=== PATIENT | female | born 1960 | race Hispanic/Latino ===

== ENCOUNTER 2022-03-04 10:48 | Emergency (ER) | payer SELFPAY ==
[2022-03-04] MEDS ORDERED: NA CHLORIDE 0.9% 1,000 ML ONE (11:25)
[2022-03-04] MEDS ORDERED: ONDANSETRON 4 MG/2 ML VIAL ONE ×2 (11:25→13:16)
[2022-03-04 11:26] LABS: Absolute Lymphocytes (CBC) 0.6 K/uL (0.7-4.9); Hematocrit 35.7 % (36.0-45.0); Lymphocytes % 7.8 % (15.3-44.8); MCV 87.4 fL (80-100); MPV 9.3 fL (7.6-11.3); RBC Red Blood Cell Count 4.08 M/uL (3.86-4.86)
[2022-03-04 11:32] LABS: Protime INR 1.34
[2022-03-04 11:38] LABS: SARS-CoV-2 Antigen Rapid Res Negative (Negative)
--- NOTE | 2022-03-04 11:53 | RAD REPORT ---
EXAM DESCRIPTION: RAD - Chest Single View - 03/04/2022 11:48 am CLINICAL HISTORY: COUGH COMPARISON: No comparisons FINDINGS: Lines: None. Lungs: No evidence of edema or pneumonia. Pleural: No significant pleural effusions or pneumothorax. Cardiac: The heart size is within normal limits. Mediastinum: Within normal limits. Bones: No acute fractures. Other: None IMPRESSION: No acute cardiopulmonary disease.
[2022-03-04 12:07] LABS: Bilirubin Direct 1.9 mg/dL (0-0.2); Bilirubin Total 2.7 mg/dL (0.2-1.0); Protein, Total 7.6 g/dL (6.4-8.2); Troponin High Sensitivity 3.4 pg/mL (<58.9)
[2022-03-04 12:08] LABS: Magnesium 2.4 mg/dL (1.8-2.4); Potassium 3.6 mmol/L (3.5-5.1)
--- NOTE | 2022-03-04 12:32 | ER ---
Nurse's Notes [facility] Name: Magdalena Barragan Age: 61 yrs Sex: Female : 1960 Arrival Date: 03/04/2022 Time: 10:51 Bed 8 Private MD: Diagnosis: Epigastric abdominal tenderness;Vomiting;Abnormal level of enzymes in specimens from digestive organs and abdominal cavity-ELEVATED LFT'S, BILIRUBIN;Calculus of bile duct without cholangitis or cholecystitis with obstruction;Other cholelithiasis with obstruction;Acute cholecystitis Presentation: 03/04 10:52 Acuity: NANDA 2 aa5 10:52 Coronavirus screen: fatigue, fever. Ebola Screen: Patient denies travel to an [facility] Ebola-affected area in the 21 days before illness onset. Initial Sepsis Screen: Does the patient meet any 2 criteria? No. Patient's initial sepsis screen is negative. Does the patient have a suspected source of infection? Yes:. Risk Assessment: Do you want to hurt yourself or someone else? Unable to obtain. Onset of symptoms was February 2022. 10:52 Method Of Arrival: Ambulatory aa5 10:52 Chief complaint: Pt's daughter reports pt was diagnosed with Colitis and has been aa5 taking Cipro and Flagyl since 02/27/22. Pt's daughter states "she did have a fever yesterday but it went away with medicine and today she woke up fine but after eating breakfast she threw up her oatmeal and was very tired after taking the antibiotics, she is also confused because she was talking to her father". Historical: - Allergies: 10:52 No Known Allergies; aa5 - PMHx: 10:52 Alzheimer's disease; aa5 - PSHx: 10:52 Hysterectomy; aa5 - Immunization history:: Adult Immunizations unknown. - Social history:: Smoking status: Patient denies any tobacco usage or history of. Screenin:10 Abuse screen: Denies threats or abuse. Nutritional screening: No deficits noted. vg1 Tuberculosis screening: No symptoms or risk factors identified. Fall Risk No fall in past 12 months (0 pts). No secondary diagnosis (0 pts). IV access (20 points). Ambulatory Aid- None/Bed Rest/Nurse Assist (0 pts). Gait- Weak (10 pts.). Mental Status- Oriented to own ability (0 pts). Total Rojas Fall Scale indicates No Risk (0-24 pts). Assessment: 11:10 General: Appears in no apparent distress. uncomfortable, Behavior is calm, cooperative. vg1 Pain: Complains of pain in epigastric area and right upper quadrant Pain began one week Noted to be grimacing, guarding, moaning. Neuro: Level of Consciousness is awake, alert, obeys commands, Oriented to person, place. Cardiovascular: Patient's skin is warm and dry. Respiratory: Airway is patent Respiratory effort is even, unlabored. GI: Abdomen is round non-distended, Bowel sounds present X 4 quads. Abdomen is tender to palpation in epigastric area and right upper quadrant Reports nausea, vomiting, Patient currently denies diarrhea. : No signs and/or symptoms were reported regarding the genitourinary system. EENT: No signs and/or symptoms were reported regarding the EENT system. Derm: Skin is pink, warm \\T\\ dry. Musculoskeletal: Circulation, motion, and sensation intact. 12:10 Reassessment: Patient appears in no apparent distress at this time. No changes from vg1 previously documented assessment. Patient and/or family updated on plan of care and expected duration. Pain level reassessed. Patient is alert, oriented x 3, equal unlabored respirations, skin warm/dry/pink. 13:30 Reassessment: Patient appears in no apparent distress at this time. No changes from vg1 previously documented assessment. Patient and/or family updated on plan of care and expected duration. Pain level reassessed. Patient is alert, oriented x 3, equal unlabored respirations, skin warm/dry/pink. 14:59 Reassessment: Patient appears in no apparent distress at this time. Patient and/or vg1 family updated on plan of care and expected duration. Pain level reassessed. pt awake and alert; pt family at bedside; stated ABD pain has decreased. 16:35 Reassessment: Patient appears in no apparent distress at this time. Patient and/or vg1 family updated on plan of care and expected duration. Pain level reassessed. pt resting with eyes closed, family at bedside. 19:00 Reassessment: Attempted to call report; placed on hold for 19 minutes before hanging vc1 up. Previous shift stated they have been trying to give report for an hour and a half. 19:26 Reassessment: Grandaughter at bedside, pt confused pulling off bp cuff. Side rails up vc1 X2. 20:03 Reassessment: Attempted to call TC to give report; \\T\\2009 asked to call back in 5 vc1 minutes. 20:29 Reassessment: Called the TC back to give report. Receiving facility will not answer the vc1 phone. marketing technology coordinator will give receiving nurse number here so they can call for report. 20:37 Reassessment: Patient appears in no apparent distress at this time. Patient and/or vc1 family updated on plan of care and expected duration. Pain level reassessed. Patient is alert, oriented x 3, equal unlabored respirations, skin warm/dry/pink. Vital Signs: 10:52 BP 143 / 85; Pulse 69; Resp 16 S; Temp 99.3(O); Pulse Ox 95% on R/A; Weight 54.43 kg aa5 (M); 11:22 BP 142 / 82; Pulse 64; Resp 16; Pulse Ox 98% on R/A; vg1 11:30 BP 133 / 74; Pulse 67; Resp 15; Pulse Ox 100% on R/A; vg1 12:30 BP 142 / 87; Pulse 75; Resp 15; Pulse Ox 100% on R/A; vg1 13:30 BP 120 / 82; Pulse 67; Resp 18; Pulse Ox 9% on R/A; vg1 14:30 BP 116 / 70; Pulse 69; Resp 16; Temp 99.0(O); Pulse Ox 99% on R/A; vg1 14:59 Temp 99.0(O); vg1 15:30 BP 107 / 76; Pulse 61; Resp 14; Pulse Ox 98% on R/A; vg1 16:30 BP 122 / 69; Pulse 63; Resp 15; Pulse Ox 99% on R/A; vg1 19:00 BP 117 / 71; Pulse 63; Resp 20; Pulse Ox 100% ; vc1 ED Course: 10:51 Patient arrived in ED. mr 10:52 Arm band placed on. aa5 10:57 Nelda Godinez RN is Primary Nurse. vg1 10:58 Manas Chawla MD is Attending Physician. jovita 11:00 Inserted saline lock: 20 gauge in right antecubital area, using aseptic technique. vg1 ,using aseptic technique. completed by CARMEN, machine technician. 11:10 Patient has correct armband on for positive identification. Placed in gown. Bed in low vg1 position. Call light in reach. Side rails up X2. Adult w/ patient. Client placed on continuous cardiac and pulse oximetry monitoring. NIBP monitoring applied. 11:14 Triage completed. aa5 11:15 Initial lab(s) drawn, by me, sent to lab. vg1 11:50 XRAY Chest (1 view) In Process Unspecified. EDMS 12:49 CT Abd/Pelvis - IV Contrast Only In Process Unspecified. EDMS 12:49 initiated transfer to [facility]. bd 13:11 US Abdomen Limited In Process Unspecified. EDMS 19:23 Primary Nurse role handed off by Nelda Godinez, RN mw2 19:25 Mindy Fraser, INDIO is Primary Nurse. vc1 20:56 No provider procedures requiring assistance completed. Patient transferred, IV remains vc1 in place. Administered Medications: 11:35 Drug: NS 0.9% 500 ml Route: IV; Rate: bolus; Site: right antecubital; vg1 12:10 Follow up: IV Status: Completed infusion; IV Intake: 500ml vg1 11:36 Drug: Zofran (Ondansetron) 4 mg Route: IVP; Site: right antecubital; vg1 13:45 Follow up: Response: No adverse reaction vg1 12:10 Drug: NS 0.9% 1000 ml Route: IV; Rate: 125 ml/hr; Site: right antecubital; vg1 13:29 Drug: Pepcid (famotidine) 20 mg Route: IVP; Site: right antecubital; vg1 14:56 Follow up: Response: No adverse reaction vg1 13:31 Drug: Zofran (Ondansetron) 4 mg Route: IVP; Site: right antecubital; vg1 14:56 Follow up: Response: No adverse reaction vg1 13:34 Drug: fentaNYL (PF) 25 mcg Route: IVP; Site: right antecubital; vg1 14:59 Follow up: Response: Marked relief of symptoms; Pain is decreased vg1 13:36 Drug: Zosyn (piperacillin-tazobactam) 3.375 grams Route: IVPB; Infused Over: 60 mins; vg1 Site: right antecubital; 14:56 Follow up: IV Status: Completed infusion; IV Intake: 100ml vg1 13:41 Drug: Tylenol Suppository 650 mg Route: [place]; vg1 14:59 Follow up: Temp 99.0 Oral vg1 Medication: 11:10 VIS not applicable for this client. vg1 Intake: 12:10 IV: 500ml; Total: 500ml. vg1 14:56 IV: 100ml; Total: 600ml. vg1 Outcome: 12:32 ER care complete, transfer ordered by . jovita 20:56 Transferred by ground EMS Transfer form completed. X-rays sent w/ patient. vc1 20:56 Condition: stable 20:56 Instructed on the need for transfer. 20:57 Patient left the ED. vc1 Signatures: Dispatcher [employer] EDMS Salud Hoang Corey, MD MD cha Rivera, Smita mr Aguilar, Monserrat, RN RN [email or web address] Dana Sanders2 Nelda Godinez, RN RN vg1 Mindy Fraser, RN RN vc1 Corrections: (The following items were deleted from the chart) 11:22 11:10 GI: Abdomen is round non-distended, Bowel sounds present X 4 quads. Abdomen is vg1 tender to palpation in epigastric area and right upper quadrant vg1
--- NOTE | 2022-03-04 12:33 | EDPHYS ---
Physician Documentation [facility] Name: Magdalena Barragan Age: 61 yrs Sex: Female : 1960 Arrival Date: 03/04/2022 Time: 10:51 Bed 8 Private MD: WESTLEY Physician Manas Chawla HPI: 03/04 11:50 This 61 yrs old Female presents to ER via Ambulatory with complaints of jovita Abdominal Pain, Vomiting, Nausea. 11:50 The patient presents to the emergency department with nausea, vomiting, that is jovita intermittent, abdominal pain, of the right lower quadrant and left lower quadrant. Onset: The symptoms/episode began/occurred 5 day(s) ago. Possible causes: unknown. The symptoms are aggravated by nothing. The symptoms are alleviated by nothing. Associated signs and symptoms: Pertinent positives: abdominal pain, nausea, vomiting. Severity of symptoms: At their worst the symptoms were mild moderate in the emergency department the symptoms are unchanged. The patient has experienced similar episodes in the past, a few times. Historical: - Allergies: 10:52 No Known Allergies; aa5 - PMHx: 10:52 Alzheimer's disease; aa5 - PSHx: 10:52 Hysterectomy; aa5 - Immunization history:: Adult Immunizations unknown. - Social history:: Smoking status: Patient denies any tobacco usage or history of. ROS: 11:51 Constitutional: Negative for fever, chills, and weight loss, Eyes: Negative for injury, jovita pain, redness, and discharge, ENT: Negative for injury, pain, and discharge, Neck: Negative for injury, pain, and swelling, Cardiovascular: Negative for chest pain, palpitations, and edema, Respiratory: Negative for shortness of breath, cough, wheezing, and pleuritic chest pain, Back: Negative for injury and pain, : Negative for injury, bleeding, discharge, and swelling, MS/Extremity: Negative for injury and deformity, Skin: Negative for injury, rash, and discoloration, Psych: Negative for depression, anxiety, suicide ideation, homicidal ideation, and hallucinations, Allergy/Immunology: Negative for hives, rash, and allergies, Endocrine: Negative for neck swelling, polydipsia, polyuria, polyphagia, and marked weight changes, Hematologic/Lymphatic: Negative for swollen nodes, abnormal bleeding, and unusual bruising. 11:51 Respiratory: Positive for cough. 11:51 Abdomen/GI: Positive for abdominal pain, nausea and vomiting, of the right upper quadrant, left upper quadrant, right lower quadrant and left lower quadrant. Exam: 11:51 Constitutional: This is a well developed, well nourished patient who is awake, alert, jovita and in no acute distress. Head/Face: Normocephalic, atraumatic. Eyes: Pupils equal round and reactive to light, extra-ocular motions intact. Lids and lashes normal. Conjunctiva and sclera are non-icteric and not injected. Cornea within normal limits. Periorbital areas with no swelling, redness, or edema. ENT: Nares patent. No nasal discharge, no septal abnormalities noted. Tympanic membranes are normal and external auditory canals are clear. Oropharynx with no redness, swelling, or masses, exudates, or evidence of obstruction, uvula midline. Mucous membranes moist. Neck: Trachea midline, no thyromegaly or masses palpated, and no cervical lymphadenopathy. Supple, full range of motion without nuchal rigidity, or vertebral point tenderness. No Meningismus. Chest/axilla: Normal chest wall appearance and motion. Nontender with no deformity. No lesions are appreciated. Cardiovascular: Regular rate and rhythm with a normal S1 and S2. No gallops, murmurs, or rubs. Normal PMI, no JVD. No pulse deficits. Respiratory: Lungs have equal breath sounds bilaterally, clear to auscultation and percussion. No rales, rhonchi or wheezes noted. No increased work of breathing, no retractions or nasal flaring. Back: No spinal tenderness. No costovertebral tenderness. Full range of motion. Female : Normal external genitalia. Skin: Warm, dry with normal turgor. Normal color with no rashes, no lesions, and no evidence of cellulitis. MS/ Extremity: Pulses equal, no cyanosis. Neurovascular intact. Full, normal range of motion. Psych: Awake, alert, with orientation to person, place and time. Behavior, mood, and affect are within normal limits. 11:51 ECG was reviewed by the Attending Physician. 11:51 Abdomen/GI: Inspection: distension, that is mild, Bowel sounds: normal, Palpation: mild abdominal tenderness, in all quadrants, Liver: no appreciated palpable abnormalities, Hernia: not appreciated. Vital Signs: 10:52 BP 143 / 85; Pulse 69; Resp 16 S; Temp 99.3(O); Pulse Ox 95% on R/A; Weight 54.43 kg aa5 (M); 11:22 BP 142 / 82; Pulse 64; Resp 16; Pulse Ox 98% on R/A; vg1 11:30 BP 133 / 74; Pulse 67; Resp 15; Pulse Ox 100% on R/A; vg1 12:30 BP 142 / 87; Pulse 75; Resp 15; Pulse Ox 100% on R/A; vg1 13:30 BP 120 / 82; Pulse 67; Resp 18; Pulse Ox 9% on R/A; vg1 14:30 BP 116 / 70; Pulse 69; Resp 16; Temp 99.0(O); Pulse Ox 99% on R/A; vg1 14:59 Temp 99.0(O); vg1 15:30 BP 107 / 76; Pulse 61; Resp 14; Pulse Ox 98% on R/A; vg1 16:30 BP 122 / 69; Pulse 63; Resp 15; Pulse Ox 99% on R/A; vg1 19:00 BP 117 / 71; Pulse 63; Resp 20; Pulse Ox 100% ; vc1 MDM: 10:59 Patient medically screened. jovita 11:53 Differential diagnosis: Nonspecific abd pain, pancreatitis, appendicitis, jovita diverticulitis, viral gastroenteritis, gastroenteritis, appendicitis, bowel obstruction, cholecystitis, Cholelithiasis, diverticulitis. Data reviewed: vital signs, nurses notes, lab test result(s), CBC, electrolytes, hepatic panel, urinalysis, EKG, radiologic studies, CT scan. Data interpreted: competency evaluated nurse aide: rate is 67 beats/min, rhythm is regular, Pulse oximetry: on room air is 100 %. Test interpretation: by ED physician or midlevel provider: ECG, plain radiologic studies. Counseling: I had a detailed discussion with the patient and/or guardian regarding: the historical points, exam findings, and any diagnostic results supporting the discharge/admit diagnosis, lab results, radiology results, the need for further work-up and treatment in the hospital. 03/04 11:02 Order name: Basic Metabolic Panel; Complete Time: 12:26 jovita 03/04 11:02 Order name: CBC with Diff; Complete Time: 11:38 jovita 03/04 11:02 Order name: LFT's; Complete Time: 12:26 [facility] 03/04 11:02 Order name: Magnesium; Complete Time: 12:26 [facility] 03/04 11:02 Order name: NT PRO-BNP; Complete Time: 12: [facility] 03/04 11:02 Order name: PT-INR; Complete Time: 11:38 [facility] 03/04 11:02 Order name: Troponin HS; Complete Time: 12: [facility] 03/04 11:02 Order name: XRAY Chest (1 view); Complete Time: 12: [facility] 03/04 11:02 Order name: Lipase; Complete Time: 12: [facility] 03/04 11:02 Order name: CT Abd/Pelvis - IV Contrast Only; Complete Time: 13:08 [facility] 03/04 11:02 Order name: SARS RAPID; Complete Time: 11:38 [facility] 03/04 12:28 Order name: US Abdomen Limited; Complete Time: 13:38 [facility] 03/04 17:44 Order name: Urine Dipstick-Ancillary EDMS 03/04 11:02 Order name: EKG; Complete Time: 11:03 [facility] 03/04 11:02 Order name: Cardiac monitoring; Complete Time: 11:39 [facility] 03/04 11:02 Order name: EKG - Nurse/Tech; Complete Time: 11:39 [facility] 03/04 11:02 Order name: IV Saline Lock; Complete Time: 11:19 [facility] 03/04 11:02 Order name: Labs collected and sent; Complete Time: 11:19 [facility] 03/04 11:02 Order name: O2 Per Protocol; Complete Time: 11:04 [facility] 03/04 11:02 Order name: O2 Sat Monitoring; Complete Time: 11:04 [facility] EC:51 Rate is 61 beats/min. Rhythm is regular. QRS [place] is Normal. [place] interval is normal. QRS jovita interval is normal. QT interval is normal. No Q waves. T waves are Normal. No ST changes noted. Clinical impression: NSR w/ Non-specific ST/T Changes and No evidence of ischemia. Interpreted by me. Reviewed by me. Administered Medications: 11:35 Drug: NS 0.9% 500 ml Route: IV; Rate: bolus; Site: right antecubital; vg1 12:10 Follow up: IV Status: Completed infusion; IV Intake: 500ml vg1 11:36 Drug: Zofran (Ondansetron) 4 mg Route: IVP; Site: right antecubital; vg1 13:45 Follow up: Response: No adverse reaction vg1 12:10 Drug: NS 0.9% 1000 ml Route: IV; Rate: 125 ml/hr; Site: right antecubital; vg1 13:29 Drug: Pepcid (famotidine) 20 mg Route: IVP; Site: right antecubital; vg1 14:56 Follow up: Response: No adverse reaction vg1 13:31 Drug: Zofran (Ondansetron) 4 mg Route: IVP; Site: right antecubital; vg1 14:56 Follow up: Response: No adverse reaction vg1 13:34 Drug: fentaNYL (PF) 25 mcg Route: IVP; Site: right antecubital; vg1 14:59 Follow up: Response: Marked relief of symptoms; Pain is decreased vg1 13:36 Drug: Zosyn (piperacillin-tazobactam) 3.375 grams Route: IVPB; Infused Over: 60 mins; vg1 Site: right antecubital; 14:56 Follow up: IV Status: Completed infusion; IV Intake: 100ml vg1 13:41 Drug: Tylenol Suppository 650 mg Route: [place]; vg1 14:59 Follow up: Temp 99.0 Oral vg1 Disposition Summary: 03/04/22 12:32 Transfer Ordered Transfer Location: [facility] jovita Reason: Higher level of care jovita Condition: Fair jovita Problem: new jovita Symptoms: have improved jovita Accepting Physician: TO [facility](03/04/22 20:57) vc1 Diagnosis - Epigastric abdominal tenderness jovita - Vomiting jovita - Abnormal level of enzymes in specimens from digestive organs and abdominal cavity - jovita ELEVATED LFT'S, BILIRUBIN - Calculus of bile duct without cholangitis or cholecystitis with obstruction jovita - Other cholelithiasis with obstruction jovita - Acute cholecystitis jovita Forms: - Medication Reconciliation Form jovita - SBAR form jovita Signatures: Dispatcher [employer] EDManas Thornton MD MD cha Calderon, Audri RN RN [email or web address] Nelda Godinez RN RN vg1 Mindy Fraser RN RN vc1 Corrections: (The following items were deleted from the chart) 13:10 12:32 TO [facility] jovita jovita 13:33 13:10 TO [facility] jovita jovita 20:57 13:33 TO [facility] vc1
--- NOTE | 2022-03-04 12:59 | RAD REPORT ---
EXAM DESCRIPTION: CT - Abdomen Pelvis W Contrast - 03/04/2022 12:47 pm CLINICAL HISTORY: Abdominal pain COMPARISON: none. TECHNIQUE: Computed axial tomography of the abdomen pelvis was obtained. 100 cc Isovue-300 was admin istered intravenously. Oral contrast was not requested which limits evaluation of bowel and appendix All CT scans are performed using dose optimization technique as appropriate and may include automated exposure control or mA/KV adjustment according to patient size. FINDINGS: Fatty liver. Mild dilatation intrahepatic biliary tree Mild gallbladder distention. Stranding within adjacent fat. Mild gallbladder wall thickening. Trace amount of free fluid. Spleen, pancreas, adrenal and kidneys appear unremarkable. There is no evidence of diverticulitis. Normal appendix. A 2 centimeter right ovarian cyst IMPRESSION: Patient most likely has acute cholecystitis
[2022-03-04] MEDS ORDERED: FENTANYL CITR 100 MCG/2 ML ONE (13:15)
[2022-03-04] MEDS ORDERED: FAMOTIDINE 20 MG/2 ML VIAL IV ONE (13:16)
[2022-03-04] MEDS ORDERED: ACETAMINOPHEN 325 MG/SUPP PR ONE (13:16)
[2022-03-04] MEDS ORDERED: NA CHLORIDE 0.9% 100 ML ONE (13:16)
[2022-03-04] MEDS ORDERED: PIPERACIL/TAZO 3.375 GM VIAL IV ONE (13:16)
--- NOTE | 2022-03-04 13:24 | RAD REPORT ---
EXAM DESCRIPTION: US - Abdomen Exam Limited - 03/04/2022 1:11 pm CLINICAL HISTORY: Abdominal pain. COMPARISON: CT abdomen March 04, 2022 FINDINGS: Multiple gallstones. Mild gallbladder wall thickening. Borderline dilatation of biliary tree IMPRESSION: Cholelithiasis with cholecystitis
[2022-03-04 17:43] LABS: Urine Blood Trace-lysed (Negative); Urine Glucose Negative (Negative); Urine Protein Negative (Negative)
--- NOTE | 2022-03-05 13:09 | EKG ---
Test Date: 2022-03-04 Test Time: 11:27:26 [place]: ALBARO MEASUREMENT RESULTS: Intervals: Rate: 61 NV: 150 QRSD: 80 QT: 420 QTc: 422 [place]: P: 52 NV: 150 QRS: 18 T: 60 INTERPRETIVE STATEMENTS: Normal sinus rhythm Nonspecific T wave abnormality Abnormal ECG No previous ECG available for comparison Electronically Signed On 03-05-22 13:05:34 CDT by Nilesh Alfonso
[2022-03-07 01:04] VITALS: TEMP 99
[2022-03-07 01:08] VITALS: BP 117/71; O2SAT 100
== END 2022-03-04 20:57 | disposition short-term general hospital (02) ==
LOC: ER 10:48
DX: K80.50 Calculus of bile duct without cholangitis or cholecystitis without obstruction (principal); K80.81 Other cholelithiasis with obstruction; R79.89 Other specified abnormal findings of blood chemistry; R11.10 Vomiting, unspecified; G30.9 Alzheimer's disease, unspecified; F02.80 Dementia in other diseases classified elsewhere, unspecified severity, without behavioral disturbance, psychotic disturbance, mood disturbance, and anxiety
CPT/HCPCS: 36415; 71045; 74177; 76705; 80048; 80076; 81003; 83690; 83735; 83880; 84484; 85025; 85610; 87811; 93005; 96361; 96365; 96375; 99285; J2405; J2543; J3010; J7030; Q9967